=== PATIENT | female | born 1980 | race Caucasian/White ===

== ENCOUNTER 2017-06-01 19:43 | Emergency (ER) | payer BC ==
[~2017-06-01] VITALS: Ht 170.2 cm; Wt 86.1 kg
[~2017-06-01 19:43] MED LIST: PREN1TAB49 PO
[2017-06-01 20:25] VITALS: Ht 170.2 cm; Wt 86.1 kg
[2017-06-02] MEDS ORDERED: LIDOCAINE 2% (MDV) 20 ML INJ INJ ONE
[2017-06-02] MEDS ORDERED: ACETAMINOPHEN 325 MG TAB PO ONE
--- NOTE | 2017-06-02 00:20 | ERD ---
ER Documentation Chief Complaint Chief Complaint l great toe pain s/p ingrown toenail x 1 week HPI 37-year-old otherwise healthy female presents the emergency department for complaints of left toe pain which has been intermittent 3 days. Patient describes the pain as an intermittent 5 out of 10 dull localized pain to the left great toe which is worse with walking and improved with rest. She denies fever, chills, redness or swelling of the lower extremity. She also notes intermittent dysuria and is concerned that she may be . She states her last normal period was 3 weeks ago and she is currently spotting however she had unprotected intercourse over the past 3 weeks. She denies abdominal pain, flank pain, nausea, vomiting, diarrhea. ROS All systems reviewed and are negative except as per history of present illness. Medications Home Meds Active Scripts Fluconazole* (Diflucan*) 150 Mg Tablet, 150 MG PO ONCE, #2 TAB Prov:MODESTO GALVAN PA-C 06/02/17 Naproxen* (Naprosyn*) 500 Mg Tablet, 500 MG PO BID Y for PAIN AND/OR INFLAMMATION, #30 TAB Prov:MODESTO GALVAN PA-C 06/02/17 Mupirocin* (Bactroban*) 2% -22 Gram Oint...g., 1 APPLIC TOP BID for 7 Days, EA Prov:MODESTO GALVAN PA-C 06/02/17 Reported Medications Vits W-Ca,Fe,Fa(<1MG) () 1 Tab Tablet, 1 TAB PO DAILY, #1 09/03/11 Allergies Allergies: Coded Allergies: Penicillins (Verified Allergy, Intermediate, RASHES, ITCHINESS, 09/03/11) PMhx/Soc Hx Alcohol Use: No Hx Substance Use: No Hx Tobacco Use: No Smoking Status: Never smoker Physical Exam Vitals Vital Signs Date Time Temp Pulse Resp B/P Pulse Ox O2 Delivery O2 Flow Rate FiO2 06/01/17 20:25 98.2 112 18 157/102 97 Physical Exam Const: Well-developed well-nourished, no acute distress Head: Atraumatic Eyes: Normal Conjunctiva ENT: Normal External Ears, Nose and Mouth. Neck: Full range of motion..~ No meningismus. Resp: Clear to auscultation bilaterally Cardio: Regular rate and rhythm, no murmurs Abd: Soft, non tender, non distended. Normal bowel sounds Skin: No petechiae or rashes Back: No midline or flank tenderness Ext: Erythema with mild swelling to the medial aspect of the left great toe. Slight amount of clear discharge expressed with pressure applied to the area. Tenderness to palpation of the affected area. No erythema or swelling of the foot ankle or lower leg. No cyanosis, or edema Neur: Awake and alert Psych: Normal Mood and Affect Result Diagram: 06/02/1710506/02/17105 Results 24 hrs Laboratory Tests Test 06/02/17 00:11 06/02/17 01:06 Urine Color YELLOW Urine Clarity TURBID Urine pH 7.0 Urine Specific [place] 1.015 Urine Ketones NEGATIVEmg/dL Urine Nitrite NEGATIVEmg/dL Urine Bilirubin NEGATIVEmg/dL Urine Urobilinogen NEGATIVEmg/dL Urine Leukocyte Esterase NEGATIVELeu/ul Urine Microscopic RBC 3/HPF Urine Microscopic WBC 5/HPF Urine Squamous Epithelial Cells FEW/HPF Urine Mucus FEW/HPF Urine Yeast (Budding) MANY/HPF Urine Hemoglobin NEGATIVEmg/dL Urine Glucose NEGATIVEmg/dL Urine Total Protein NEGATIVEmg/dl White Blood Count 7.610^3/ul Red Blood Count 4.9010^6/ul Hemoglobin 14.4g/dl Hematocrit 42.7% Mean Corpuscular Volume 87.1fl Mean Corpuscular Hemoglobin 29.4pg Mean Corpuscular Hemoglobin Concent 33.7g/dl Red Cell Distribution Width 13.0% Platelet Count 19285^3/UL Mean Platelet Volume 9.3fl Neutrophils % 69.0% Lymphocytes % 21.1% Monocytes % 7.9% Eosinophils % 1.0% Basophils % 0.5% Nucleated Red Blood Cells % 0.0/100WBC Neutrophils # 5.310^3/ul Lymphocytes # 1.610^3/ul Monocytes # 0.610^3/ul Eosinophils # 0.110^3/ul Basophils # 0.010^3/ul Nucleated Red Blood Cells # 0.010^3/ul Sodium Level 143mmol/L Potassium Level 4.1mmol/L Chloride Level 107mmol/L Carbon Dioxide Level 25mmol/L Anion Gap 15 Blood Urea Nitrogen 11mg/dl Creatinine 0.65mg/dl Glucose Level 102mg/dl Calcium Level 8.7mg/dl Total Bilirubin 0.1mg/dl Direct Bilirubin 0.00mg/dl Indirect Bilirubin 0.1mg/dl Aspartate Amino Transf (AST/SGOT) 21IU/L Alanine Aminotransferase (ALT/SGPT) 38IU/L Alkaline Phosphatase 73IU/L Total Protein 7.2g/dl Albumin 4.2g/dl Globulin 3.00g/dl Albumin/Globulin Ratio 1.40 Lipase 92U/L Current Medications Medications (Trade) Dose Ordered Sig/Brad Route PRN Reason Start Time Stop Time Status Last Admin Dose Admin Acetaminophen (Tylenol Tab) 650 mg ONCE ONCE PO 06/02/17 00:00 06/02/17 00:03 DC 06/02/17 00:11 Lidocaine (Xylocaine 2% (Mdv) 20 ml) 20 ml ONCE ONCE INJ 06/02/17 00:00 06/02/17 00:03 DC Procedures/MDM This is an otherwise healthy 37-year-old female who presents to the emergency department for complaints of left toe pain. Vital signs reviewed within normal limits upon arrival. Physical exam with evidence of ingrown left great toenail. Toenail Removal by me: Anesthesia: 1% lidocaine Digital Block Location: Left great toe Technique: from nail bed, vertical split, twisting towards remaining nail. Packing: Non-adherent dressing applied Complications: None Recommend bid dressing changes and warm water soaks. Patient reported concern regarding possible and UTI As she had experienced dysuria and mild abdominal pain. Laboratory workup unremarkable for acute process and patient was without abdominal distention or tenderness. Urine was negative. Urinalysis negative for evidence of acute infection or hematuria. There was evidence of yeast overgrowth in the urine. Due to the patient's complaint of dysuria and mild pain I will be treating her for a yeast infection with fluconazole. At this time low suspicion for urinary tract infection, pyelonephritis, acute appendicitis, diverticulitis, ovarian torsion, ectopic , pancreatitis or cholecystitis. Based on patient's history of present illness and physical examination the decision was made to discharge. The patient was re-evaluated after ED treatment and stabilizing measures, and symptoms have improved. There is no evidence of life threatening injuries or illnesses at this time. On re-examination, patient resting in no distress, stable vital signs, reports feeling better and safe for discharge with outpatient follow up with PMD in 1-2 days. Patient given return precautions. Departure Diagnosis: Primary Impression: Pain of toe Laterality: left Qualified Code: M79.675 - Pain of toe of left foot Additional Impressions: Dysuria Ingrown nail of great toe of left foot MODESTO GALVAN PA-C Jun 02, 2017 00:20
[2017-06-02 01:16] LABS: BASOPHILS % 0.5 % (0.0-2.0); EOSINOPHILS # 0.1 10^3/ul (0.0-0.5); HEMATOCRIT 42.7 % (37.0-47.0); HEMOGLOBIN 14.4 g/dl (12.0-16.0); LYMPHOCYTES # 1.6 10^3/ul (0.8-2.9); LYMPHOCYTES % 21.1 % (15.0-51.0); MEAN CORPUSCULAR HEMOGLOBIN 29.4 pg (29.0-33.0); MEAN CORPUSCULAR HGB CONC 33.7 g/dl (32.0-37.0); MEAN CORPUSCULAR VOLUME 87.1 fl (82.0-101.0); MEAN PLATELET VOLUME 9.3 fl (7.4-10.4); MONOCYTE # 0.6 10^3/ul (0.3-0.9); MONOCYTES % 7.9 % (0.0-11.0); NEUTROPHIL # 5.3 10^3/ul (1.6-7.5); PLATELET COUNT 299 10^3/UL (140-415); WHITE BLOOD COUNT 7.6 10^3/ul (4.8-10.8)
[2017-06-02 01:27] LABS: ADD UMIC YES; UR ASCORBIC ACID NEGATIVE (NEGATIVE); UR BILIRUBIN (Dip) NEGATIVE (NEGATIVE); UR BLOOD (Dip) NEGATIVE (NEGATIVE); UR BUDDING YEAST MANY /HPF (NONE SEEN); UR CLARITY TURBID (CLEAR); UR COLOR YELLOW (YELLOW); UR GLUCOSE (Dip) NEGATIVE (NEGATIVE); UR KETONES (Dip) NEGATIVE (NEGATIVE); UR LEUKOCYTE ESTERASE (Dip) NEGATIVE Leu/ul (NEGATIVE); UR MUCUS FEW /HPF (NONE SEEN); UR NITRITE (Dip) NEGATIVE (NEGATIVE); UR RBC 3 /HPF (0-5); UR SPECIFIC GRAVITY (Dip) 1.015 (1.003-1.030); UR SQUAMOUS EPITHELIAL CELL FEW /HPF (FEW); UR TOTAL PROTEIN (Dip) NEGATIVE (NEGATIVE); UR UROBILINOGEN (Dip) NEGATIVE (NEGATIVE)
[2017-06-02 01:51] LABS: ALBUMIN 4.2 g/dl (3.3-4.9); ALBUMIN/GLOBULIN RATIO 1.4; BILIRUBIN,INDIRECT 0.1 mg/dl (0-1.1); BILIRUBIN,TOTAL 0.1 mg/dl (0.2-1.3); CALCIUM 8.7 mg/dl (8.4-10.2); CREATININE 0.65 mg/dl (0.44-1.00); POTASSIUM 4.1 mmol/L (3.5-5.1); TOTAL PROTEIN 7.2 g/dl (6.1-8.1)
[2017-06-02] MEDS ORDERED: FLUC150T17 PO (02:07)
[2017-06-02] MEDS ORDERED: MUPI22OI2 TOP (02:07)
[2017-06-02] MEDS ORDERED: NAPR-260 PO (02:07)
== END 2017-06-02 02:20 | disposition home or self-care (01) ==
LOC: FTE 19:43
DX: L60.0 Ingrowing nail (principal); R30.0 Dysuria
CPT/HCPCS: 11765; 80053; 81001; 83690; 85025; Z7502; Z7610